=== PATIENT | female | born 2000 | race Hispanic/Latino ===

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

== ENCOUNTER 2021-01-03 13:57 | Outpatient (RCR) | payer OTHER, SELFPAY ==
[2020-12-30 12:29] VITALS: BP 134/89; PULSE 83
--- NOTE | ~2021-01-03 | US_ITS ---
EXAMINATION: US OB BPP wo non-stress DATE: 12/30/2020 12:59 SPECIMEN ACCESSIONER INDICATION: TECHNIQUE: Real-time transabdominal obstetric ultrasound. FINDINGS: No prior studies for comparison. There is a single living fetus in vertex presentation. The placenta is anterior without placenta pre via. cardiac activity and movement is noted with a heart rate of 135 beats per minute. A FI is normal measuring 10.7 cm. Biophysical profile: breathin of 2 movement: 2 of 2 tone: 2 of 2 Amniotic flud pocket: 2 of 2 Total score: 8 of 8 IMPRESSION: 1. Single living intrauterine in vertex presentation. 2: Total biophysical profile score of 8/8. Reviewed, dictated and finalized at location A. IMEN ACCESSIONER
== END 2021-03-03 09:29 | disposition home or self-care (01) ==
LOC: ANHOBOP 13:57
PROVIDERS: Visit Provider Obstetrics & Gynecology
DX: O36.5930 Maternal care for other known or suspected poor fetal growth, third trimester, not applicable or unspecified (principal); Z3A.35 35 weeks gestation of pregnancy
CPT/HCPCS: 59025; 76819

== ENCOUNTER 2021-01-03 20:06 | Inpatient (IN) | payer OTHER, SELFPAY ==
[2021-01-03] VITALS (12 sets, daily range): BP systolic 129–167; BP diastolic 81–103; PULSE 68–99; RESP 18–20; TEMP 36.9; BMI 31.8
[2021-01-03] MEDS: LACTATED RINGERS 1,000 ML 75 ML IV CONT ×2 (20:55→22:22)
--- NOTE | 2021-01-03 21:23 | OBADM ---
This patient, Cherise Welsh, admitted to the OB room Labor/Delivery/Recovery 105 for observation. Patient/family oriented to hospital policies and general routines including ID bracelet, bed and alarms, visiting hours, pain management, procedures, bathroom and other care routines, personal items, smoking policy, room service/diet, and visiting hours. Patient/Family are encouraged to report perceived risks to care and to ask questions if they do not understand what they are told or what they should do.
[2021-01-03 21:33] LABS: Basophils Percent Auto 0.3 % (0.2-1.2); Eosinophils Absolute Auto 0.1 K/mm3 (0-0.3); Eosinophils Percent Auto 0.9 % (0-4.4); Hematocrit 38.4 % (37.0-47.0); Immature Granulocyte Absolute 0.06 K/mm3 (0.00-0.031); Immature Granulocyte Percent A 0.4 % (0-0.5); Lymphocytes Absolute Auto 2.19 K/mm3 (0.9-3.2); Lymphocytes Percent Auto 15.2 % (18.3-44.2); Mean Corpuscular HGB Conc 33.9 g/dl (32-36); Mean Corpuscular Hemoglobin 29.2 pg (26-34); Mean Corpuscular Volume 86.3 fl (80-100); Mean Platelet Volume 14.2 fl (7.4-10.4); Monocytes Absolute Auto 0.8 K/mm3 (0.1-0.6); Monocytes Percent Auto 5.6 % (2.6-8.5); Neutrophils Absolute Auto 11.2 K/mm3 (1.3-6.7); Neutrophils Percent Auto 77.6 % (45.5-73.1); Platelet Count Result 117 k/mm3 (150-375); Red Blood Count 4.45 M/mm3 (4.2-5.4); Red Cell Distribution Width 13.6 % (11.5-14.5); White Blood Count 14.4 K/mm3 (4.5-10.0)
[2021-01-03 21:34] LABS: Add Urine Microscopic? YES; Appearance Urine Cloudy (Clear); Bilirubin Urine Negative (Negative); Blood Urine Negative (Negative); Color Urine Yellow (Yellow); Glucose Urine UA Negative (Negative); Ketones Urine Negative (Negative); Leukocyte Esterase Ur Negative LEU/UL (Negative); Mucus Urine Rare /lpf; Nitrate Urine Negative (Negative); Protein Urine 3+ mg/dL (Negative); Specific Grav Ur 1.025 (1.001-1.035); Squamous Epithelial Cell Urine Few /hpf (Few); Urobilinogen Urine Negative mg/dL (<2.0)
[2021-01-03 21:35] LABS: Alanine Aminotransferase 97 U/L (4-35); Albumin Level 3.9 g/dL (3.5-5.1); Alkaline Phosphatase 221 U/L (38-126); Anion Gap 9 mmol/L (8-16); Aspartate Amino Transferase 133 U/L (14-36); Bilirubin,Total 0.5 mg/dL (0.2-1.3); Blood Urea Nitrogen 12 mg/dL (7-17); Calcium 9.5 mg/dL (8.4-10.2); Carbon Dioxide 25 mmol/L (22-30); Chloride 103 mmol/L (98-107); Estimated CRCL calculation 133 ml/min; Estimated Glomerular Filt Rate > 60; Glucose 85 mg/dL (65-110); Potassium 3.5 mmol/L (3.4-5.0); Sodium 137 mmol/L (137-145); Uric Acid 4.5 mg/dL (2.5-7.5)
--- NOTE | 2021-01-03 21:42 | PM.IMHP ---
H&P: HPI History of Present Illness Date/Time: 01/03/21 21:42 Cherise is a 20yo @ 35.1wks who presented to L&D with complaints of abdominal and back pain. She was found to have elevated blood pressures and diagnosed with pre-eclampsia w/ severe features based on transaminitis. She was also found to be summer regularly but with reassuring heart tones. She denies VB or LOF. She endorses good movement. No RICKETTS, vision changes, SOB, or CP. Her is complicated by: - Late and limited care (total of 4 visits) - IUGR w/ EFW<3%ile; normal dopplers - Pre-eclampsia w/ severe features - GBS unknown Chief Complaint: abdominal pain Review of Systems Review of Systems: All systems reviewed & are unremarkable except as noted in HPI and below (HPI) [facility] Family History Family History Other No pertinent family history Social History Social History Substance use: never Spiritual care concerns: No Meds Home Medications and Allergies Home Medications Medication Instructions Recorded Confirmed Type ferrous sulfate [FeroSul] 325 mg PO DAILY 01/03/21 01/03/21 History [id number] 1 tablet PO DAILY 01/03/21 01/03/21 History [] Allergies Allergy/AdvReac Type Severity Reaction Status Date / Time No Known Allergies Allergy Verified 01/03/21 13:35 Vital Signs Vital Signs - 24 hr 01/03/21 20:55 01/03/21 21:28 01/03/21 21:30 Temperature 36.9 C Pulse Rate 69 68 Respiratory Rate 20 Blood Pressure 167/103 H 158/103 H Exam Const: General: cooperative, healthy appearing and uncomfortable Resp: Effort & Inspection: normal respiratory effort Cardio: Rate: regular rate GI: Inspection: normal to inspection GI Palp: Yes Soft to palpation : Other: FHT's: 150's/ mod conor/ + accels/ no decels - cat 1 TOCO: ctx' q2min Cervix: 1/thick/high Presentation: cephalic Membranes: intact H&P: Results Labs Labs: [facility] 01/03/21 21:09 Sodium 137 Potassium 3.5 Chloride 103 Carbon Dioxide 25 BUN 12 Creatinine 0.60 L Glucose 85 Calcium 9.5 Liver Function 01/03/21 Range/Units 21:09 Total Bilirubin 0.5 (0.2-1.3) mg/dL AST 133 H (14-36) U/L ALT 97 H (4-35) U/L Alkaline Phosphatase 221 H (38-126) U/L Albumin 3.9 (3.5-5.1) g/dL Urine 01/03/21 Range/Units 21:09 Urine Color Yellow (Yellow) Urine Appearance Cloudy H (Clear) Urine pH 7.0 (5.0-9.0) Ur Specific [place] 1.025 (1.001-1.035) Urine Protein 3+ H (Negative) mg/dL Urine Glucose (UA) Negative (Negative) mg/dL Assessment and Plan Assessment and plan (1) Pre-eclampsia: Qualifiers: Trimester: third trimester Qualified Code(s): O14.93 - Unspecified pre-eclampsia, third trimester Code(s): O14.90 - Unspecified pre-eclampsia, unspecified trimester Status: Acute (2) IUGR (intrauterine growth restriction): Status: Acute (3) : Qualifiers: Weeks of gestation: 35 weeks Qualified Code(s): Z3A.35 - 35 weeks gestation of Code(s): Z34.90 - Encounter for supervision of normal , unspecified, unspecified trimester Status: Acute Additional Plan - Admit to L&D for IOL due to pre-eclampsia with severe features and gestational age >34wks - Plan to proceed with pitocin augmentation due to frequent contractions - Magnesium sulfate for seizure prevention; 4g loading, 2g/hr thereafter - Labetalol protocol if BP >160/110 sustained for 10 minutes - Will repeat labs q12hrs - Betamethasone 12mg for lung maturity - GBS prophylaxis with ampicillin - Anesthesia consult PRN pain
[2021-01-03 21:47] LABS: Creatinine Urine 125.2 mg/dL
[2021-01-03 22:15] LABS: Total Protein Urine Random > 500 mg/dL
[2021-01-03] MEDS: AMPICILLIN 2 GM/NS 100 ML 2 GM/100 ML BAG IVPB (22:22)
[2021-01-03] MEDS: MAGNESIUM SULF 4 GM/WATER100ML 4 GM/100 ML BAG IVPB (22:23)
[2021-01-03] MEDS: BETAMETHASONE SOD PHOS/ACETATE 30 MG/5 ML VIAL 12 MG IM (22:23)
--- NOTE | 2021-01-03 22:34 | WPDHPUPDATE1 ---
History and Physical Update Update Date/Time: 01/03/21 22:34 History and Physical has been reviewed, including an updated exam of the patient. There are NO changes in the patient's condition. Risks, benefits, and alternatives have been discussed and questions answered. Patient agrees to proceed with procedure.
[2021-01-03] MEDS: MAGNESIUM SULF 20GM/WATER500ML 500 ML 50 MG IV CONT (22:54)
[2021-01-03] MEDS: DINOPROSTONE 10 MG VAG INSERT VAGINAL (23:00)
[2021-01-04] VITALS (92 sets, daily range): BP systolic 119–160; BP diastolic 55–124; PULSE 79–158; RESP 16–18; TEMP 36.3–37.2; O2SAT 93–100
[2021-01-04] MEDS: AMPICILLIN 1 GM/NS 50 ML 1 GM/50 ML BAG IVPB ×2 (02:07→05:55)
--- NOTE | 2021-01-04 03:20 | WPDANESEPPF ---
Anes - Initial Pre Proc Eval Procedure: labor epidural Date/Time: 01/04/21 03:20 Surgeon: Genie Garnica MD Pre Op Diagnosis: labor pain Pre Op Diagnosis: Back Pain/Abdominal Pain Patient Data Age: 20 Gender: F Height: 1.63 m Weight: 84 kg Last Vital Signs Temp 36.9 C 01/04/21 02:00 Pulse 94 01/04/21 03:00 Resp 18 01/03/21 22:54 BP 143/90 H 01/04/21 03:00 Allergies Allergy/AdvReac Type Severity Reaction Status Date / Time No Known Allergies Allergy Verified 01/03/21 13:35 Home Medications Medication Instructions Recorded Confirmed Type ferrous sulfate [FeroSul] 325 mg PO DAILY 01/03/21 01/03/21 History [id number] 1 tablet PO DAILY 01/03/21 01/03/21 History [] Laboratory Tests 01/03/21 01/03/21 01/03/21 21:09 21:09 21:09 WBC 14.4 K/mm3 H K/mm3 (4.5-10.0) RBC 4.45 M/mm3 M/mm3 (4.2-5.4) Hgb 13.0 g/dL g/dL (12.0-15.0) Hct 38.4 % % (37.0-47.0) MCV 86.3 fl fl (80-100) MCH 29.2 pg pg (26-34) MCHC 33.9 g/dl g/dl (32-36) RDW 13.6 % % (11.5-14.5) Plt Count 117 k/mm3 L k/mm3 (150-375) MPV 14.2 fl H fl (7.4-10.4) Immature Gran % (Auto) 0.4 % % (0-0.5) Neut % (Auto) 77.6 % H % (45.5-73.1) Lymph % (Auto) 15.2 % L % (18.3-44.2) [place] % (Auto) 5.6 % % (2.6-8.5) Eos % (Auto) 0.9 % % (0-4.4) Baso % (Auto) 0.3 % % (0.2-1.2) Lymph # (Auto) 2.19 K/mm3 K/mm3 (0.9-3.2) [place] # (Auto) 0.8 K/mm3 H K/mm3 (0.1-0.6) Eos # (Auto) 0.1 K/mm3 K/mm3 (0-0.3) Baso # (Auto) 0.0 K/mm3 K/mm3 (0.0-0.1) Abs Immat Gran (auto) 0.06 K/mm3 H K/mm3 (0.00-0.031) Absolute Neuts (auto) 11.2 K/mm3 H K/mm3 (1.3-6.7) Absolute Nucleated RBC 0.0 K/mm3 K/mm3 (0.0-0.012) Nucleated RBC % 0.0 % % (0.0-0.2) % Immature Plt Fraction 27.0 % H % (0.9-11.2) Sodium Potassium Chloride Carbon Dioxide Anion Gap BUN Creatinine Estim Creat Clear Calc Estimated GFR Glucose Uric Acid Calcium Total Bilirubin AST ALT Alkaline Phosphatase Total Protein Albumin Urine Color Yellow (Yellow) Urine Appearance Cloudy H (Clear) Urine pH 7.0 (5.0-9.0) Ur Specific [place] 1.025 (1.001-1.035) Urine Protein 3+ mg/dL H mg/dL (Negative) Urine Glucose (UA) Negative mg/dL mg/dL (Negative) Urine Ketones Negative mg/dL mg/dL (Negative) Ur Blood (Man) Negative (Negative) Urine Nitrate Negative (Negative) Urine Bilirubin Negative (Negative) Urine Urobilinogen Negative mg/dL mg/dL (<2.0) Leukocyte Esterase Rfl Negative EMMA/UL EMMA/UL (Negative) Urine RBC 3-5 /hpf H /hpf (0-2) Urine WBC 4-6 /hpf H /hpf Ur Squamous Epith Cells Few /hpf /hpf (Few) Urine Mucus Rare /lpf /lpf U Random Total Protein > 500 mg/dL mg/dL Urine Creatinine 125.2 mg/dL mg/dL Protein/Creat Ratio 2 > 3.99 mg/mg H mg/mg (0-0.20) RPR Blood Type Antibody Screen 01/03/21 01/03/21 01/03/21 21:09 22:07 22:07 WBC RBC Hgb Hct MCV MCH MCHC RDW Plt Count MPV Immature Gran % (Auto) Neut % (Auto) Lymph % (Auto) [place] % (Auto) Eos % (Auto) Baso % (Auto) Lymph # (Auto) [place] # (Auto) Eos # (A
--- NOTE | 2021-01-04 04:15 | LDADM ---
This patient, Cherise Welsh, was admitted to Labor/Delivery/Recovery 105 on 01/03/21 at 20:06. Plans for labor, pain management and were discussed with patient. Patient/family oriented to hospital policies and general routines including ID bracelet, bed and alarms, visiting hours, pain management, procedures, bathroom and other care routines, personal items, smoking policy, room service/diet and guest tray routines, security routines, and visiting hours. Patient/Family are encouraged to report perceived risks to care and to ask questions if they do not understand what they are told or what they should do. See OBIX for further documentation.
[2021-01-04] MEDS: OXYTOCIN 30 UNITS/NS 500 ML 30 UNITS/500 ML BAG 999 UNITS IV CONT (07:04)
--- NOTE | 2021-01-04 07:26 | P.PCNOB_ITS ---
OB - Delivery Note Procedure Delivery date: 01/04/21 events: Pre-Eclampsia and Labor Induction Induction method: per cervidil protocol Delivery monitor: external FHT and internal uterine Route of delivery: Laceration Description: Vaginal - 1st Degree (and clitoral martins) Quantitative Blood Loss (ml): 150 Anesthesia type: Epidural Disposition: floor [place] Baby Date of : 01/04/21 Time of : 07:02 Weeks of gestation at delivery: 35 (.2) gender: Male Weight (pounds): 4 Weight (ounces): 10 presentation: vertex position: Left Occiput Anterior Placenta delivery description: Expressed cord vessel description: 3 Vessels and Delayed Cord Clamping score one minute: 9 score five minutes: 9 Narrative: Cherise rapidly progressed to complete dilation with strong desire to push. She pushed for approximately 30 minutes and delivered the head over intact perineum. No nuchal cord was palpated. She easily delivered the infa nt's shoulders and body without complications. The infant had spontaneous cry and was immediately placed skin to skin. Delayed cord clamping was performed. The umbilical cord was then clamped and cut. with Pitocin running and gentle downward traction on the cord, the placenta delivered without complications. Bimanual massage was performed and good uterine tone with minimal bleeding was noted. A small fragment of membranes was removed. The patient was examined and a small vaginal laceration and clitoral martins laceration were noted. They were repaired in the normal fashion using 3-0 Vicryl. For fundal massage revealed a firm uterus with minimal bleeding. Sponge, lap, instrument, and needle counts were correct at the end of the procedure. Mom and baby were left bonding in the birthing suite in stable condition.
[2021-01-04] MEDS: OXYTOCIN 30 UNITS/NS 500 ML 30 UNITS/500 ML BAG 75 UNITS IV CONT (07:40)
[2021-01-04 08:27] LABS: Basophils Percent Auto 0.1 % (0.2-1.2); Hematocrit 33.1 % (37.0-47.0); Hemoglobin 11.6 g/dL (12.0-15.0); Immature Granulocyte Absolute 0.09 K/mm3 (0.00-0.031); Immature Granulocyte Percent A 0.6 % (0-0.5); Immature Platelet Fraction Pct 23.5 % (0.9-11.2); Lymphocytes Absolute Auto 0.77 K/mm3 (0.9-3.2); Lymphocytes Percent Auto 4.8 % (18.3-44.2); Mean Corpuscular Hemoglobin 29.3 pg (26-34); Mean Corpuscular Volume 83.6 fl (80-100); Mean Platelet Volume 13.8 fl (7.4-10.4); Monocytes Absolute Auto 0.3 K/mm3 (0.1-0.6); Monocytes Percent Auto 1.7 % (2.6-8.5); Neutrophils Absolute Auto 14.9 K/mm3 (1.3-6.7); Neutrophils Percent Auto 92.8 % (45.5-73.1); Platelet Count Result 88 k/mm3 (150-375); Red Blood Count 3.96 M/mm3 (4.2-5.4); Red Cell Distribution Width 13.5 % (11.5-14.5); White Blood Count 16.1 K/mm3 (4.5-10.0)
[2021-01-04 08:44] LABS: Alanine Aminotransferase 97 U/L (4-35); Albumin Level 3.3 g/dL (3.5-5.1); Alkaline Phosphatase 214 U/L (38-126); Anion Gap 10 mmol/L (8-16); Aspartate Amino Transferase 124 U/L (14-36); Bilirubin,Total 0.3 mg/dL (0.2-1.3); Blood Urea Nitrogen 10 mg/dL (7-17); Calcium 7.4 mg/dL (8.4-10.2); Carbon Dioxide 18 mmol/L (22-30); Chloride 100 mmol/L (98-107); Estimated CRCL calculation 133 ml/min; Estimated Glomerular Filt Rate > 60; Glucose 123 mg/dL (65-110); Lactate Dehydrogenase 709 U/L (313-618); Potassium 3.6 mmol/L (3.4-5.0); Sodium 128 mmol/L (137-145); Uric Acid 4.5 mg/dL (2.5-7.5)
[2021-01-04] MEDS: MAGNESIUM SULF 20GM/WATER500ML 500 ML 50 MG IV CONT ×2 (08:49→18:50)
[2021-01-04] MEDS: WITCH HAZEL 40 PADS 1 PAD TOPICAL (08:50)
[2021-01-04] MEDS: LANOLIN (LANSINOH) 7.5 GM CREAM 1 APPLIC TOPICAL (08:51)
--- NOTE | 2021-01-04 10:27 | PC.NURSE ---
Patient transferred to post room #279 per wheelchair from labor and delivery. Support person present. Oriented to unit, room, information board, rooming in, admission packet and security measures. Patient verbalizes understanding.
--- NOTE | 2021-01-04 14:10 | PC.NURSE ---
Consult with pt., discussed initiating pumping to stimulate milk supply with infant in Level II. Breast pump provided due to mother's wishes. Instructions given on breast pump care and usage, pumping schedule, nipple care, and collection and storage of breast milk. Encouraged [id number], breast massage and manual expression to stimulate supply. Assessed patient for correct flange size, placement and draw. Patient verbalizes and demonstrates understanding of instructions. Discussed colostrum vs milk supply and mother may not see more than a few drops the first few days, milk should transition in by day 3 and she may see more volume pumped per session. Discussed establishing in the may be more difficult due to their immaturity, infant may be less alert, have less stamina, and have greater difficulty with latch, suck, and swallow. ?s feeding may impact mother?s milk supply, pumping may need to be continued until milk supply is well established and infant is able to effectively breastfeed without supplementation.
[2021-01-05 03:45] VITALS: BP 126/79; PULSE 75; RESP 16; TEMP 36.8
[2021-01-05] MEDS: LACTATED RINGERS 1,000 ML 75 ML (03:45)
[2021-01-05 04:52] LABS: Basophils Percent Auto 0.2 % (0.2-1.2); Hematocrit 32.6 % (37.0-47.0); Hemoglobin 10.8 g/dL (12.0-15.0); Immature Granulocyte Absolute 0.11 K/mm3 (0.00-0.031); Immature Granulocyte Percent A 0.6 % (0-0.5); Immature Platelet Fraction Pct 24.2 % (0.9-11.2); Lymphocytes Absolute Auto 1.68 K/mm3 (0.9-3.2); Lymphocytes Percent Auto 8.7 % (18.3-44.2); Mean Corpuscular HGB Conc 33.1 g/dl (32-36); Mean Corpuscular Volume 87.4 fl (80-100); Mean Platelet Volume 13.1 fl (7.4-10.4); Monocytes Absolute Auto 0.8 K/mm3 (0.1-0.6); Monocytes Percent Auto 4.3 % (2.6-8.5); Neutrophils Absolute Auto 16.6 K/mm3 (1.3-6.7); Neutrophils Percent Auto 86.2 % (45.5-73.1); Platelet Count Result 118 k/mm3 (150-375); Red Blood Count 3.73 M/mm3 (4.2-5.4); Red Cell Distribution Width 14.3 % (11.5-14.5); White Blood Count 19.2 K/mm3 (4.5-10.0)
[2021-01-05 05:01] LABS: Alanine Aminotransferase 76 U/L (4-35); Albumin Level 3.1 g/dL (3.5-5.1); Alkaline Phosphatase 195 U/L (38-126); Anion Gap 7 mmol/L (8-16); Aspartate Amino Transferase 58 U/L (14-36); Bilirubin,Total 0.2 mg/dL (0.2-1.3); Blood Urea Nitrogen 8 mg/dL (7-17); Calcium 6.7 mg/dL (8.4-10.2); Carbon Dioxide 24 mmol/L (22-30); Chloride 102 mmol/L (98-107); Estimated CRCL calculation 133 ml/min; Estimated Glomerular Filt Rate > 60; Glucose 114 mg/dL (65-110); Potassium 3.9 mmol/L (3.4-5.0); Sodium 133 mmol/L (137-145)
[2021-01-05 07:55] VITALS: BP 135/92; PULSE 67; RESP 16; TEMP 36.6; O2SAT 99
--- NOTE | 2021-01-05 09:52 | WPDANLDPN2 ---
Anes-Prog Note L&D Date/Time: 01/05/21 09:52 Comfortable throughout: labor and delivery Neuraxial method: epidural Epidural/Spinal procedure site: clean & non-tender Neuro status: Neuro function grossly intact. Cardiovascular status: normal Respiratory status: normal Airway patency: baseline Mental status: baseline Post-Op hydration status: normal Vital Signs: Last Vital Signs Temp 36.6 C 01/05/21 07:55 Pulse 67 01/05/21 07:55 Resp 16 01/05/21 07:55 BP 135/92 H 01/05/21 07:55 Pulse Ox 99 01/05/21 07:55 Pain score (VAS): 0 I/O: Intake & Output 01/04/21 01/05/21 01/05/21 23:59 07:59 15:59 Intake Total 500 1165 500 Output Total 800 1000 1000 Balance -300 165 -500 Post-procedural complaints: none Patient feedback: Patient satisfied with anesthetic care.
[2021-01-05] MEDS: MULTIVIT/MIN/PREN/FOL AC/IRON TABLET 1 TAB PO (11:20)
[2021-01-05] MEDS: IBUPROFEN 600 MG TABLET PO (11:20)
[2021-01-05 12:11] VITALS: BP 116/75; PULSE 85; RESP 16; TEMP 37.1; O2SAT 100
--- NOTE | 2021-01-05 13:05 | PM.OBPNVD ---
OB - PN: Subj Subjective Date/time seen: 01/05/21 13:05 PPD#1 Cherise reports doing well today. The magnesium has been discontinued since this morning and she feels better. Her BPs and have in the normal to mild range. She denies any CP, RICKETTS, vision changes, SOB. She has tolerated regular diet, voided, passed gas, and ambulated. No symptoms of anemia. She is pumping. She would like her son circumcised. She denies fever, chills, N/V, dizziness or palpitations. OB - PN: Obj Data Labs CBC & Chem 7: 01/05/21 03:47 01/05/21 03:47 Labs: Laboratory Results - last 24 hr 01/05/21 01/05/21 03:47 03:47 WBC 19.2 H RBC 3.73 L Hgb 10.8 L Hct 32.6 L MCV 87.4 MCH 29.0 MCHC 33.1 RDW 14.3 Plt Count 118 L MPV 13.1 H Immature Gran % (Auto) 0.6 H Neut % (Auto) 86.2 H Lymph % (Auto) 8.7 L [place] % (Auto) 4.3 Eos % (Auto) 0.0 Baso % (Auto) 0.2 Lymph # (Auto) 1.68 [place] # (Auto) 0.8 H Eos # (Auto) 0.0 Baso # (Auto) 0.0 Abs Immat Gran (auto) 0.11 H Absolute Neuts (auto) 16.6 H Absolute Nucleated RBC 0.0 Nucleated RBC % 0.0 % Immature Plt Fraction 24.2 H Sodium 133 L Potassium 3.9 Chloride 102 Carbon Dioxide 24 Anion Gap 7 L BUN 8 Creatinine 0.60 L Estim Creat Clear Calc 133 Estimated GFR > 60 Glucose 114 H Calcium 6.7 L Total Bilirubin 0.2 AST 58 H ALT 76 H Alkaline Phosphatase 195 H Total Protein 6.0 L Albumin 3.1 L OB - PN A/P Assessment and Plan (1) Pre-eclampsia: Qualifiers: Trimester: third trimester Qualified Code(s): O14.93 - Unspecified pre-eclampsia, third trimester Code(s): O14.90 - Unspecified pre-eclampsia, unspecified trimester Status: Acute (2) Normal vaginal delivery of first : Code(s): O80 - Encounter for full-term uncomplicated delivery Status: Acute Plan day: 1 Plan: routine care Comments: - will monitor BP's 24 hours off magnesium - possible d/c home tomorrow - circumcision to be performed today. Time Spent With Patient Time: Total time spent is greater than 50% in coordination of care (as documented) at patient's floor/unit and/or counseling patient: Review of Systems Review of Systems: All systems reviewed & are unremarkable except as noted in HPI and below (HPI) Exam Const: General: cooperative, healthy appearing, comfortable and no acute distress Resp: Effort & Inspection: normal respiratory effort Auscultation: clear to auscultation bilaterally Cardio: Rate: regular rate GI: Inspection: normal to inspection and non-distended GI Palp: No abdominal tenderness and Yes Soft to palpation Auscultation: normal bowel sounds : Other: fundus firm Skin: General skin exam: normal color Neuro: General: oriented to person Extrem: General: normal to inspection Psych: Appearance: grossly normal Affect: normal affect Attitude: cooperative
--- NOTE | 2021-01-05 14:45 | PC.NURSE ---
consult with pt., mother states she has not pumped regularly, she has been tired from the Magnesium, which has now been discontinued. Mother states she has pumped at noon today and plans to begin every three hours. Mother denied discomfort or difficulties with pumping. Discussed colostrum vs milk supply and mother may not see more than a few drops the first few days, milk should transition in by day 3 and she may see more volume pumped per session. Mother voiced understanding of information shared.
[2021-01-05 16:15] VITALS: BP 132/81; PULSE 80
[2021-01-05 18:43] VITALS: BP 131/89; PULSE 74; RESP 16; TEMP 36.7
[2021-01-06 02:00] VITALS: BP 121/78; PULSE 74; RESP 16; TEMP 36.8
--- NOTE | 2021-01-06 07:15 | PM.OBPNVD ---
OB - PN: Subj Subjective Date/time seen: 01/06/21 07:15 PPD#2 Cherise reports doing well today. Her BPs have been in the normal to mild range. She denies any CP, RICKETTS, vision changes, SOB. She has tolerated regular diet, voided, passed gas, and ambulated. 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 No symptoms of anemia. She is pumping and bottle feeding. She denies fever, chills, N/V, dizziness or palpitations. OB - PN: Obj Data Labs CBC & Chem 7: 01/05/21 03:47 01/05/21 03:47 OB - PN A/P Assessment and Plan (1) Normal vaginal delivery of first : Code(s): O80 - Encounter for full-term uncomplicated delivery Status: Acute (2) Pre-eclampsia: Qualifiers: Trimester: third trimester Qualified Code(s): O14.93 - Unspecified pre-eclampsia, third trimester Code(s): O14.90 - Unspecified pre-eclampsia, unspecified trimester Status: Acute Plan day: 2 Plan: discharge home (or no care bed if González isn't discharged) Comments: - F/u in clinic in 2 weeks for BP check - pelvic rest/take meds as prescribed - ER return precautions: n/v/abd pain, fever, HTN, bleeding Time Spent With Patient Time: Total time spent is greater than 50% in coordination of care (as documented) at patient's floor/unit and/or counseling patient: Review of Systems Review of Systems: All systems reviewed & are unremarkable except as noted in HPI and below (HPI) Exam Const: General: cooperative, healthy appearing, comfortable and no acute distress Resp: Effort & Inspection: normal respiratory effort Auscultation: clear to auscultation bilaterally Cardio: Rate: regular rate GI: Inspection: non-distended GI Palp: No abdominal tenderness and Yes Soft to palpation Auscultation: normal bowel sounds : Other: fundus firm Skin: General skin exam: normal color Neuro: General: patient oriented x3 Extrem: General: normal to inspection Psych: Appearance: grossly normal Affect: normal affect Attitude: cooperative
[2021-01-06 07:45] VITALS: BP 123/77; PULSE 67; RESP 18; TEMP 37.4; O2SAT 98
[2021-01-06] MEDS: TETANUS,DIPHTHERIA,AC PERTUSSIS ADULT (0.5 ML) BOOSTRIX IM (09:41)
[2021-01-06] MEDS: DOCUSATE SODIUM 100 MG CAPSULE PO (09:42)
[2021-01-06] MEDS: MULTIVIT/MIN/PREN/FOL AC/IRON TABLET 1 TAB PO (09:42)
[2021-01-06] MEDS: IBUPROFEN 600 MG TABLET PO ×2 (09:42→15:50)
[2021-01-06 12:03] VITALS: BP 110/72; PULSE 63; RESP 18; TEMP 36.6; O2SAT 97
--- NOTE | 2021-01-06 12:19 | PC.NURSE ---
Consult with pt., mother continues to pump as required. Mother pumped 15mls last session. Reviewed collection and storage of colostrum/milk.
--- NOTE | 2021-01-06 17:08 | PC.NURSE ---
1700-Patient discharged to No Care Bed (NCB).
--- NOTE | 2021-01-06 17:27 | PC.NURSE ---
2766-Patient viewed the discharge video Mother & Baby Care, The First Two Weeks . Patient was given the opportunity and encouraged to ask questions. Patient verbalized understanding of information shared and has been given the mother/baby guide for home reference.
[2021-01-07 07:19] LABS: Rapid Plasma Reagin Non-Reactive (NonReactive)
--- NOTE | 2021-01-09 13:53 | PM.OBDSVD ---
DS: Admitting Diagnosis Discharge Date 01/06/21 Admitting Diagnosis contractions pre-eclampsia with severe features DS: Discharge Diagnosis Discharge Diagnosis (1) Pre-eclampsia: Qualifiers: Trimester: third trimester Qualified Code(s): O14.93 - Unspecified pre-eclampsia, third trimester Code(s): O14.90 - Unspecified pre-eclampsia, unspecified trimester Status: Acute (2) Normal vaginal delivery of first : Code(s): O80 - Encounter for full-term uncomplicated delivery Status: Acute OB - DS: Summary OB Procedures : PIH Mgmt and Ultrasound OB Procedures Intrapartum: Spontaneous Vag Delivery OB Procedures: : None Peripartum Data Delivery Method: Natural Vaginal Laceration Description: Vaginal - 1st Degree complications: none [place] 1: Gender: Male Disposition of : home Status at Discharge Functional status at discharge: independent ambulation Overall status at discharge: patient is back to baseline Time Spent with Patient Time attestation: Total time spent providing and/or coordinating discharge services: Time spent: Less than 30 minutes Exam Const: General: cooperative, healthy appearing, comfortable and no acute distress Resp: Effort & Inspection: normal respiratory effort Auscultation: clear to auscultation bilaterally Cardio: Rate: regular rate GI: Inspection: normal to inspection and non-distended GI Palp: No abdominal tenderness and Yes Soft to palpation Auscultation: normal bowel sounds : Other: fundus firm Skin: General skin exam: normal color Neuro: General: patient oriented x3 Psych: Appearance: grossly normal Affect: normal affect Attitude: cooperative DS: Data Data Completed and Pending Pending studies at discharge: Pending at discharge 01/04/21 07:06 Surgical [PTH] Routine Discharge Plan Discharge Attending physician on discharge: Genie Garnica Consulting providers: J Carlos Devlin Discharging Clinician: Genie Garnica Anticipated Discharge Date/Time: 01/06/21 16:00 Patient Disposition: Home, Self-Care Activity: pelvic rest Diet: regular Discharge Instructions: Education: Mom and Baby Guide Given to: Mother Follow-Up: Call your delivering provider's office for an appointment to be seen in: F/U 2 weeks; [facility] discharges Mom and baby should come to the [facility] for the follow-up appointment. Appointment Date/Time: at What to expect at your follow-up visit: Call [phone] if you are unable to keep your appointment time. BREAST CARE: * Wear a snug supportive bra * For engorgement discomfort: Breast Feeding: * Apply warm moist washcloths * Express milk as needed to relieve engorgement * Wear loose clothing Bottle Feeding: * May apply ice packs * For sore nipples: * Identify correct latch-on * Apply warm moist washcloths before and after nursing * Air dry nipples after nursing * May apply Lansinoh cream to nipples EPISIOTOMY/PERINEAL CARE: * Until bleeding stops, use your pat bottle after urinating * Change your pad frequently throughout the day * You may take sitz baths several times a day (fill your bathtub with warm water and soak for 20 minutes.) Do NOT bathe in the water * No tub baths until seen by your physician - You may shower ACTIVITY: * Rest as much as possible. * Do not exercise or lift anything heavier than your baby (such as laundry or other children.) * Avoid stairs or driving as much as possible. * Do not put anything into the vagina. No douching, tampons, or sexual activity until seen by physician. NOTIFY PHYSICIAN IF YOU HAVE ANY QUESTIONS OR IF ANY OF THE FOLLOWING SYMPTOMS OCCUR: * If your perineum becomes red, swollen, or more laura
== END 2021-01-06 17:00 | disposition home or self-care (01) | DRG 560 ==
LOC: ANHLDR 21:50 → ANHOB2 01-04 10:42
PROVIDERS: Admitting Provider Obstetrics & Gynecology; Visit Provider Obstetrics & Gynecology
DX: O14.14 Severe pre-eclampsia complicating childbirth (principal); O36.5930 Maternal care for other known or suspected poor fetal growth, third trimester, not applicable or unspecified; O70.0 First degree perineal laceration during delivery; Z3A.35 35 weeks gestation of pregnancy; Z37.0 Single live birth; Z23 Encounter for immunization
CPT/HCPCS: 36415; 80053; 81001; 82570; 83615; 84112; 84156; 84550; 85025; 85055; 86592; 86850; 86900; 86901; 88307; 90471; 90653; 90715; A9270; G0008; J0131; J0290; J0702; J2590; J2795; J3475; J7120

== ENCOUNTER 2021-10-17 11:54 | Outpatient (CLI) | payer OTHER, SELFPAY ==
--- NOTE | ~2021-10-17 | US_ITS ---
EXAMINATION: US OB follow up DATE: 10/17/2021 11:59 INDICATION: with inconclusive viability. No care. TECHNIQUE: Real-time ultrasound of the pelvis was performed. COMPARISON: None. FINDINGS: There is a single living fetus in breech presentation. The placenta is posterior, 12.0 cm from the c ervix. heart rate is 144 beats per minute (bpm). The cervical length is 4.1 cm. The amniotic fl uid index is 16.8 cm, which is normal. The following biometric data were obtained: Biparietal diameter (BPD): 6.2 cm; head circumference (HC): 23.8 cm; abdominal circumference (AC): 23 .1 cm; femur length (FL): 5.1 cm. These measurements are discordant with HC/AC < 5th percentile. Estimated weight is 1021 g +/- 153 g. As single measurements, these parameters are each equal to the following estimated gestational ages: BPD: 26 weeks 2 days. HC: 25 weeks 6 days. AC: 27 weeks 3 days. FL: 27 weeks 1 days. estimated gestational age based solely on measurements from this exam is 26 weeks 3 days +/- 1 weeks 6 days. The heart is normal. The diaphragm, stomach, and bladder are normal. IMPRESSION: 1. Single living fetus in breech presentation. 2. Estimated weight is 1021 g +/- 153 g with estimated date of delivery of 01/20/2022. 3. Discordant biometrics with low HC/AC. Reviewed, dictated and finalized at location A.
[2021-10-17 12:14] LABS: Basophils Percent Auto 0.2 % (0.2-1.2); Eosinophils Absolute Auto 0.1 K/mm3 (0-0.3); Hematocrit 32.2 % (37.0-47.0); Hemoglobin 10.3 g/dL (12.0-15.0); Immature Granulocyte Absolute 0.05 K/mm3 (0.00-0.031); Immature Granulocyte Percent A 0.4 % (0-0.5); Lymphocytes Absolute Auto 1.89 K/mm3 (0.9-3.2); Lymphocytes Percent Auto 15.1 % (18.3-44.2); Mean Corpuscular Hemoglobin 27.1 pg (26-34); Mean Corpuscular Volume 84.7 fl (80-100); Mean Platelet Volume 12.8 fl (7.4-10.4); Monocytes Absolute Auto 0.7 K/mm3 (0.1-0.6); Monocytes Percent Auto 5.3 % (2.6-8.5); Neutrophils Absolute Auto 9.8 K/mm3 (1.3-6.7); Platelet Count Result 222 k/mm3 (150-375); White Blood Count 12.5 K/mm3 (4.5-10.0)
[2021-10-17 12:21] LABS: Appearance Urine Slightly Cloudy (Clear); Bilirubin Urine Negative (Negative); Blood Urine Negative (Negative); Color Urine Yellow (Yellow); Glucose Urine UA Negative (Negative); Ketones Urine Negative (Negative); Leukocyte Esterase Ur Negative LEU/UL (NEGATIVE); Nitrate Urine Negative (Negative); Protein Urine Trace mg/dL (Negative); Urobilinogen Urine 0.2 mg/dL (<2.0); pH Urine 8.5 (5.0-9.0)
[2021-10-17 12:35] LABS: Bacteria Urine Trace /hpf; Mucus Urine Rare /lpf; RBC Urine 0-2 /hpf (0-2); Squamous Epithelial Cell Urine Few /hpf (Few); WBC Urine 0-3 /hpf (0-3)
[2021-10-17 12:37] LABS: Add Urine Microscopic? YES
[2021-10-17 13:04] LABS: Vitamin D 25 Hydroxy 19.4 ng/mL
[2021-10-17 13:06] LABS: HIV 1/2 Ab P24 Ag Result Negative (Negative)
[2021-10-17 13:35] LABS: Hepatitis C Virus Antibody Negative (Negative)
[2021-10-17 13:44] LABS: Hepatitis B Surface Antigen Negative (Negative); Rubella IgG Antibody 31.8 IU/ML
[2021-10-18 07:10] LABS: Rapid Plasma Reagin Non-Reactive (NonReactive)
== END 2021-10-17 11:55 | disposition home or self-care (01) ==
PROVIDERS: PCP Obstetrics & Gynecology; Visit Provider Obstetrics & Gynecology
DX: Z34.90 Encounter for supervision of normal pregnancy, unspecified, unspecified trimester (principal)
CPT/HCPCS: 36415; 76816; 81001; 82306; 84443; 85025; 86592; 86703; 86762; 86787; 86803; 86850; 86900; 86901; 87086; 87088; 87340; G0432

== ENCOUNTER 2021-11-15 12:52 | Outpatient (CLI) | payer OTHER, SELFPAY ==
[2021-11-15 14:56] LABS: Basophils Percent Auto 0.2 % (0.2-1.2); Eosinophils Absolute Auto 0.2 K/mm3 (0-0.3); Hematocrit 33.9 % (37.0-47.0); Hemoglobin 10.6 g/dL (12.0-15.0); Immature Granulocyte Absolute 0.05 K/mm3 (0.00-0.031); Immature Granulocyte Percent A 0.5 % (0-0.5); Lymphocytes Absolute Auto 1.53 K/mm3 (0.9-3.2); Lymphocytes Percent Auto 15.1 % (18.3-44.2); Mean Corpuscular HGB Conc 31.3 g/dl (32-36); Mean Corpuscular Hemoglobin 27.1 pg (26-34); Mean Corpuscular Volume 86.7 fl (80-100); Monocytes Absolute Auto 0.7 K/mm3 (0.1-0.6); Monocytes Percent Auto 6.5 % (2.6-8.5); Neutrophils Absolute Auto 7.7 K/mm3 (1.3-6.7); Neutrophils Percent Auto 75.7 % (45.5-73.1); Platelet Count Result 244 k/mm3 (150-375); Red Blood Count 3.91 M/mm3 (4.2-5.4); Red Cell Distribution Width 14.7 % (11.5-14.5); White Blood Count 10.1 K/mm3 (4.5-10.0)
[2021-11-15 15:13] LABS: Glucose 1 Hour PP 50gm Dose 90 mg/dL
== END 2021-11-15 12:53 | disposition home or self-care (01) ==
LOC: ANHLAB 12:55
PROVIDERS: PCP Obstetrics & Gynecology; Visit Provider Obstetrics & Gynecology
DX: Z34.90 Encounter for supervision of normal pregnancy, unspecified, unspecified trimester (principal); Z3A.00 Weeks of gestation of pregnancy not specified
CPT/HCPCS: 36415; 82947; 85025

== ENCOUNTER 2022-01-10 14:40 | Outpatient (RCR) | payer OTHER, SELFPAY ==
[2021-11-30 12:54] VITALS: BP 110/62; PULSE 75
--- NOTE | ~2022-01-10 | US_ITS ---
US OB limited w BPP DATE: 01/10/2022 15:48 INDICATION: Decreased movement TECHNIQUE: Real-time and color flow imaging and Doppler analysis COMPARISON: 10/17/2021 obstetrical ultrasound 12/30/2020 obstetrical ultrasound with biophysical profile FINDINGS: Live nichols intrauterine gestation, fetus in longitudinal lie, vertex presentation. Feta l heart rate of 136 bpm. Posterior placenta. Amniotic fluid index measures 10.6 cm. 5th percentile FREDDIE is 7.2 cm; 95th percentile FREDDIE is 22.6 cm. BIOPHYSICAL PROFILE reported by hardware technician: breathin out of 2 movement: 2 out of 2 tone: 2 out of 2 Amniotic fluid pocket: 2 out of 2 Total score: 8 out of 8 IMPRESSION: Normal biophysical profile score of 8 out of 8 Amniotic fluid index measures 10.6 cm, within normal range Reviewed, dictated and finalized at [facility]. Reviewed, dictated and finalized at location A. [place] ASSISTANT MANAGER
[2022-01-10 16:00] VITALS: BP 127/87; PULSE 85
== END 2022-01-21 15:34 | disposition home or self-care (01) ==
LOC: ANHOBOP 14:40
PROVIDERS: PCP Obstetrics & Gynecology; Visit Provider Obstetrics & Gynecology
DX: O36.8130 Decreased fetal movements, third trimester, not applicable or unspecified (principal); Z3A.34 34 weeks gestation of pregnancy
CPT/HCPCS: 59025; 76815; 76819

== ENCOUNTER 2022-01-12 19:17 | Inpatient (IN) | payer OTHER, SELFPAY ==
[2022-01-12] VITALS (15 sets, daily range): BP systolic 71–133; BP diastolic 26–86; PULSE 83–121; TEMP 36.9; BMI 34.0
--- NOTE | 2022-01-12 19:51 | LDADM ---
This patient, Cherise Welsh, was admitted to Labor/Delivery/Recovery 104 on 01/12/22 at 19:17. Plans for labor, pain management and were discussed with patient. Patient/family oriented to hospital policies and general routines including ID bracelet, bed and alarms, visiting hours, pain management, procedures, bathroom and other care routines, personal items, smoking policy, room service/diet and guest tray routines, security routines, and visiting hours. Patient/Family are encouraged to report perceived risks to care and to ask questions if they do not understand what they are told or what they should do. See OBIX for further documentation.
[2022-01-12 20:09] LABS: Basophils Percent Auto 0.3 % (0.2-1.2); Eosinophils Absolute Auto 0.1 K/mm3 (0-0.3); Eosinophils Percent Auto 0.7 % (0-4.4); Hematocrit 36.5 % (37.0-47.0); Hemoglobin 12.2 g/dL (12.0-15.0); Immature Granulocyte Absolute 0.08 K/mm3 (0.00-0.031); Immature Granulocyte Percent A 0.5 % (0-0.5); Lymphocytes Absolute Auto 2.18 K/mm3 (0.9-3.2); Lymphocytes Percent Auto 14.6 % (18.3-44.2); Mean Corpuscular HGB Conc 33.4 g/dl (32-36); Mean Corpuscular Hemoglobin 28.2 pg (26-34); Mean Corpuscular Volume 84.5 fl (80-100); Mean Platelet Volume 12.4 fl (7.4-10.4); Monocytes Absolute Auto 0.9 K/mm3 (0.1-0.6); Monocytes Percent Auto 5.8 % (2.6-8.5); Neutrophils Absolute Auto 11.6 K/mm3 (1.3-6.7); Neutrophils Percent Auto 78.1 % (45.5-73.1); Platelet Count Result 221 k/mm3 (150-375); Red Blood Count 4.32 M/mm3 (4.2-5.4); Red Cell Distribution Width 14.6 % (11.5-14.5); White Blood Count 14.9 K/mm3 (4.5-10.0)
[2022-01-12] MEDS: LACTATED RINGERS 1,000 ML 999 ML IV CONT (20:10)
--- NOTE | 2022-01-12 20:30 | PM.IMHP ---
H&P: HPI History of Present Illness Date/Time: 01/12/22 20:30 Chief Complaint: Contractions Narrative: Patient is a 21 y/o at 40 1/7 by LMP 04/16/21 consistent with an EDC 01/11/22 consistent with a 26 week ultrasound. She presented with complaints of contractions increasing since this afternoon. Contractions started getting more frequent approximately 7 o clock. On arrival to and D she was 8 cm, ctx every 3 minutes. PNC significant for late presentation to care at 26 weeks and history of pre-eclampsia with prior . She was taking baby aspirin and stopped at 37 weeks. She has gotten ultrasounds which have shown adequate growth. Labs reviewed. GBS neg. She also has a history of chlmydia treated during this , YAN neg and third trimester GC/CHL neg. Review of Systems Review of Systems: All systems reviewed & are unremarkable except as noted in HPI and below Constitutional: Constitutional: Reports no additional constitutional complaints and Denies headache(s) Eyes: Eyes: Denies spots in vision ENT: Reports system reviewed and no additional complaints, except as documented and Denies headache(s) Cardiovascular: Cardiovascular: Denies chest pain and Denies dyspnea Respiratory: Respiratory: Denies dyspnea Gastrointestinal: Gastrointestinal: Reports no additional gastrointestinal complaints Genitourinary: Genitourinary: Reports amenorrhea Musculoskeletal: Musculoskeletal: Reports no additional musculoskeletal complaints Integumentary/Breasts: Skin/Breast: Denies breast mass and Denies rash Neurologic: Denies headache(s) Psychiatric: Psychiatric: Reports no additional psychiatric complaints PMFSH Past Medical History Medical History Pre-eclampsia Family History Family History Other No pertinent family history Social History Social History Smoking status: Never smoker Second hand tobacco smoke exposure: No Substance use: never Lack of Transportation: No Lack of Food: Never True Current Housing: I Do Not Have Housing Concerned About Future Housing: No Difficulty Paying Gas/Electric Bills: No Difficulty Paying for Meds: No Currently Unemployed: YES Education: High School Diploma/GED Difficulty w/ Childcare or Family Care: No Spiritual care concerns: No Meds Home Medications and Allergies Home Medications Medication Instructions Recorded Confirmed Type ferrous sulfate 325 mg (65 mg 325 mg PO DAILY #90 tabs 10/25/21 01/12/22 Rx iron) tablet prenat.vits,micah,[id number] 1 tablet PO DAILY 11/02/21 01/12/22 History aspirin 81 mg tablet,delayed 81 mg PO DAILY 11/14/21 01/12/22 History release cholecalciferol (vitamin D3) 50 50 mcg PO DAILY 12/13/21 01/12/22 History mcg (2,000 unit) tablet (Vitamin D3) Allergies Allergy/AdvReac Type Severity Reaction Status Date / Time No Known Allergies Allergy Verified 01/10/22 14:08 Vital Signs Vital Signs - 24 hr 01/12/22 19:45 01/12/22 20:01 01/12/22 20:13 Temperature 98.5 F Pulse Rate 104 H 121 H Blood Pressure 133/86 124/86 Oxygen Delivery 01/12/22 20:15 01/12/22 19:51 Temperature Pulse Rate 116 H Blood Pressure 125/84 Oxygen Delivery Room Air Exam Const: General: no acute distress Eyes: General: appearance normal, both eyes and all related structures Resp: Effort & Inspection: normal respiratory effort Cardio: Rate: regular rate GI: Other: Gravid no fundal tenderness no right upper quadrant pain : External Female Exam: normal external appearance Other: cervix 8/90/-1. Skin: General skin exam: no rashes or lesions noted Neuro: Cognition (Neuro): normal cognition Extrem: General: normal to inspection Psych: Mental Status: mental status grossly normal H&P: Results La
--- NOTE | 2022-01-12 20:45 | PM.OBPNLAB ---
Pain Control Date/time seen: 01/12/22 20:45 Comments: FHT 155, cat 1, AROM thick mec at 2020. Continue expectant management.
[2022-01-12] MEDS: OXYTOCIN 30 UNITS/NS 500 ML 30 UNITS/500 ML BAG 999 UNITS IV CONT (21:24)
[2022-01-12] MEDS: LIDOCAINE HCL 1% PF 30 ML VIAL (21:34)
--- NOTE | 2022-01-12 21:38 | PM.OBPRVD ---
OB - Delivery Note Procedure Delivery date: 01/12/22 Procedure: Spontaneous vaginal delivery Delivery augmentation: Rupture of Membranes (thick meconium) Delivery monitor: External FHT Route of delivery: Laceration Description: Perineal - 1st Degree Delivery repair: vicryl (3.0 vicryl) Specimen: No Quantitative Blood Loss (ml): 300 Anesthesia type: Local Disposition: Floor Complications: None Narrative: Patient admitted in active labor. She AROM thick meconium. She progressed to ant rim at which time she was pushing. The anterior rim was reduced and she was complete. She pushed several contractions and delivered a female infant. Infant was vigorously crying upon delivery. Nose mouth suctioned with bulb at perineum. She was placed on maternal abdomen. Cord doubly clamped and cut. Global Safety Officer present for delivery. Placenta delivered spontaneously and intact with trailing membranes. Lower uterine segment cleared of small clots. The first degree perineal laceration repaired with simple suture of 3.0 vicryl after 1% lidocaine injected. She tolerated procedure well. Uterine fundus firm. [place] Baby Date of : 01/12/22 Time of : 21:19 Weeks of gestation at delivery: 40 Infant gender: Female Weight (pounds): 6 Weight (ounces): 5 presentation: vertex position: Right Occiput Anterior Placenta delivery description: Spontaneous Cord Vessel Description: Clamped/Cut score one minute: 8 score five minutes: 8 AMG Delivery Billing Delivery Delivery: Delivery Charge
[2022-01-12] MEDS: ACETAMINOPHEN 500 MG TABLET 1000 MG PO (22:09)
[2022-01-12] MEDS: LANOLIN (LANSINOH) 7.5 GM CREAM 1 APPLIC TOPICAL (22:43)
[2022-01-12] MEDS: WITCH HAZEL 40 PADS 1 PAD TOPICAL (22:43)
[2022-01-12] MEDS: BENZOCAINE 20% AER SPR (*SP) 56 GM CAN 1 SPRAY TOPICAL (22:43)
--- NOTE | 2022-01-12 23:50 | PC.NURSE ---
Patient transferred to post room # [id number] via (wheelchair ). Support person present. Oriented to unit, room, information board, rooming in, admission packet and security measures. Patient verbalizes understanding.
[2022-01-13 01:10] VITALS: BP 110/57; PULSE 79; RESP 18; TEMP 36.9; O2SAT 97
[2022-01-13] MEDS: IBUPROFEN 600 MG TABLET PO ×3 (01:39→18:00)
[2022-01-13 04:28] VITALS: BP 109/65; PULSE 88; RESP 16; TEMP 36.8; O2SAT 98
[2022-01-13 05:23] LABS: Hemoglobin 9.9 g/dL (12.0-15.0)
[2022-01-13 07:35] VITALS: BP 115/56; PULSE 98; RESP 18; TEMP 36.2; O2SAT 100
[2022-01-13] MEDS: POLYSACCHARIDE IRON COMPLEX 150 MG CAPSULE PO ×2 (08:21→18:01)
[2022-01-13] MEDS: MULTIVIT/MIN/PREN/FOL AC/IRON TABLET 1 TAB PO (08:21)
[2022-01-13] MEDS: DOCUSATE SODIUM 100 MG CAPSULE PO ×2 (08:22→18:00)
[2022-01-13 09:04] LABS: Rapid Plasma Reagin Non-Reactive (NonReactive)
--- NOTE | 2022-01-13 10:31 | P.PNOB_ITS ---
OB - PN: Subj Subjective Date/time seen: 01/13/22 10:31 Patient comments: pain well controlled, tolerating diet and other (Decreasing lochia.) baby status: doing well and nursing well [place] feeding status: exclusively breast feeding OB - PN: Obj Data Labs CBC & Chem 7: 01/13/22 04:49 Labs: Laboratory Results - last 24 hr 01/12/22 01/12/22 01/12/22 19:56 20:04 20:04 WBC 14.9 H RBC 4.32 Hgb 12.2 Hct 36.5 L MCV 84.5 MCH 28.2 MCHC 33.4 RDW 14.6 H Plt Count 221 MPV 12.4 H Immature Gran % (Auto) 0.5 Neut % (Auto) 78.1 H Lymph % (Auto) 14.6 L [place] % (Auto) 5.8 Eos % (Auto) 0.7 Baso % (Auto) 0.3 Lymph # (Auto) 2.18 [place] # (Auto) 0.9 H Eos # (Auto) 0.1 Baso # (Auto) 0.0 Abs Immat Gran (auto) 0.08 H Absolute Neuts (auto) 11.6 H Absolute Nucleated RBC 0.0 Nucleated RBC % 0.0 RPR Non-reactive Blood Type O Positive Antibody Screen Positive 01/13/22 04:49 WBC RBC Hgb 9.9 L Hct 30.0 L MCV MCH MCHC RDW Plt Count MPV Immature Gran % (Auto) Neut % (Auto) Lymph % (Auto) [place] % (Auto) Eos % (Auto) Baso % (Auto) Lymph # (Auto) [place] # (Auto) Eos # (Auto) Baso # (Auto) Abs Immat Gran (auto) Absolute Neuts (auto) Absolute Nucleated RBC Nucleated RBC % RPR Blood Type Antibody Screen OB - PN A/P Plan day: 1 Plan: routine care Comments: Patient doing well. Time Spent With Patient Time: Total time spent is greater than 50% in coordination of care (as documented) at patient's floor/unit and/or counseling patient: Exam Psych: Affect: normal affect Other: Abd: fundus firm below umbilicus, nontender Perineum: healing Ext: nontender
[2022-01-13 12:30] VITALS: BP 118/62; PULSE 92; RESP 18; TEMP 37.1; O2SAT 97
[2022-01-13 20:00] VITALS: BP 128/71; PULSE 94; RESP 18; TEMP 36.9; O2SAT 98
--- NOTE | 2022-01-14 07:45 | WPDANLDPN2 ---
Anes-Prog Note L&D Date/Time: 01/14/22 07:45 Comfortable throughout: delivery Neuraxial method: epidural Epidural/Spinal procedure site: clean & non-tender Neuro status: Neuro function grossly intact. Cardiovascular status: normal Respiratory status: normal Airway patency: baseline Mental status: baseline Post-Op hydration status: normal Vital Signs: Last Vital Signs Temp 36.9 C 01/13/22 20:00 Pulse 94 01/13/22 20:00 Resp 18 01/13/22 20:00 BP 128/71 01/13/22 20:00 Pulse Ox 98 01/13/22 20:00 O2 Del Method Room Air 01/13/22 01:10 Pain score (VAS): <3 I/O: Intake & Output 01/13/22 01/13/22 01/14/22 15:59 23:59 07:59 Intake Total 480 240 Balance 480 240 Post-procedural complaints: none Patient feedback: Patient satisfied with anesthetic care.
[2022-01-14 08:14] VITALS: BP 113/71; PULSE 80; RESP 18; TEMP 36.7; O2SAT 100
[2022-01-14] MEDS: ACETAMINOPHEN 325 MG TABLET 650 MG PO (08:35)
[2022-01-14] MEDS: DOCUSATE SODIUM 100 MG CAPSULE PO (08:36)
[2022-01-14] MEDS: SIMETHICONE 80 MG TAB.CHEW PO (08:36)
[2022-01-14] MEDS: POLYSACCHARIDE IRON COMPLEX 150 MG CAPSULE PO (08:36)
[2022-01-14] MEDS: MULTIVIT/MIN/PREN/FOL AC/IRON TABLET 1 TAB PO (08:36)
[2022-01-14] MEDS: IBUPROFEN 600 MG TABLET PO (08:36)
[2022-01-14] MEDS: LANOLIN (LANSINOH) 7.5 GM CREAM 1 APPLIC TOPICAL (08:37)
--- NOTE | 2022-01-14 10:17 | PM.OBPNVD ---
OB - PN: Subj Subjective Date/time seen: 01/14/22 10:17 Patient comments: pain well controlled, tolerating diet and other (Decreasing lochia.) baby status: doing well and nursing well OB - PN: Obj Data Labs CBC & Chem 7: 01/13/22 04:49 Labs: Laboratory Results - last 24 hr 01/12/22 20:04 Antibody Identification Inconclusive Antigen Identification Cancelled FRIDA, IgG Interpret Not Performed FRIDA, Poly Interpret Neg FRIDA, Complement Interp Not Performed OB - PN A/P Plan day: 2 Plan: discharge home and other Comments: Patient doing well. Follow up 4-6 weeks. Discharge instructions provided. Time Spent With Patient Time: Total time spent is greater than 50% in coordination of care (as documented) at patient's floor/unit and/or counseling patient: Time with patient: less than 15 minutes Exam Psych: Affect: normal affect Other: Abd: fundus firm below umbilicus, nontender Perineum: healing Ext: nontender
--- NOTE | 2022-01-14 10:18 | P.DS_ITS ---
DS: Admitting Diagnosis Discharge Date 01/13/2022 Admitting Diagnosis Active labor DS: Discharge Diagnosis Discharge Diagnosis (1) Delivery normal: Code(s): O80 - Encounter for full-term uncomplicated delivery Status: Acute OB - DS: Summary Hospital Course Hospital Course: Patient admitted on 01/12/2022 in active labor. She had an uncomplicated vaginal delivery. She did well . She had adequate pain control, baby was doing well, she was ambulating well. Discharged to home on day 2. OB Procedures : Ultrasound OB Procedures Intrapartum: Spontaneous Vag Delivery OB Procedures: : None Peripartum Data Delivery Method: Natural Vaginal Laceration Description: Perineal - 1st Degree complications: none Status at Discharge Functional status at discharge: independent ambulation Time Spent with Patient Time attestation: Total time spent providing and/or coordinating discharge services: Exam Const: General: cooperative Orientation/consciousness: oriented to person, oriented to place and oriented to time HENMT: Face/Nose/Sinus: Normal external nose present Eyes: General: appearance normal, both eyes and all related structures Resp: Effort & Inspection: normal respiratory effort GI: Inspection: normal to inspection Skin: General skin exam: normal color Neuro: General: oriented to person, oriented to place and oriented to time Extrem: General: normal to inspection and no calf tenderness Psych: Appearance: grossly normal Mental Status: mental status grossly normal DS: Data Data Completed and Pending Labs on day of discharge: Labs from last 24 hours 01/12/22 20:04 Antibody Identification Inconclusive Antigen Identification Cancelled FRIDA, IgG Interpret Not Performed FRIDA, Poly Interpret Neg FRIDA, Complement Interp Not Performed Discharge Plan Discharge Attending physician on discharge: Teo Espinoza Discharging Clinician: Teo Espinoza Anticipated Discharge Date/Time: 01/14/22 10:20 Patient Disposition: Home, Self-Care Activity: may shower and pelvic rest Diet: regular Discharge Instructions: Pelvic rest for 4-6 weeks. May take over the counter Ibuprofen ( Motrin) 600mg or Tylenol ( follow package instructions) for pain. Call if saturating more than a pad an hour, leg redness, pain and swelling, temperature>100.4. No strenuous activity. Patient Instructions: Antibiotic Form Stand Alone Forms: General Discharge Information Follow-up/Referrals: Teo Espinoza MD [Physician] - 4 Weeks (Make appointment for 4-6 weeks, call for appointment.) Discharge Medications: Continued prenat.vits,micah,[id number] Tablet 1 tablet PO DAILY ferrous sulfate 325 mg (65 mg iron) tablet 325 mg PO DAILY Qty: 90 1RF Discontinued aspirin 81 mg tablet,delayed release (DR/EC) 81 mg PO DAILY cholecalciferol (vitamin D3) [Vitamin D3] 50 mcg (2,000 unit) Tablet 50 mcg PO DAILY Date of admission: 01/12/22 19:17 Primary Care Provider: PHYSICIAN,TRANSPORTATION MAINTENANCE SUPERVISOR Admitting Provider: Teo Espinoza Attending physician on admission: Teo Espinoza Condition: Stable
== END 2022-01-14 13:03 | disposition home or self-care (01) | DRG 560 ==
LOC: ANHLDR 20:15 → ANHOB2 01-13 00:45
PROVIDERS: Admitting Provider Obstetrics & Gynecology; Visit Provider Obstetrics & Gynecology
DX: O99.892 Other specified diseases and conditions complicating childbirth (principal); Z37.0 Single live birth; Z3A.40 40 weeks gestation of pregnancy; Z87.59 Personal history of other complications of pregnancy, childbirth and the puerperium; O77.0 Labor and delivery complicated by meconium in amniotic fluid; O36.8330 Maternal care for abnormalities of the fetal heart rate or rhythm, third trimester, not applicable or unspecified; O70.0 First degree perineal laceration during delivery
CPT/HCPCS: 36415; 85014; 85018; 85025; 86592; 86850; 86870; 86880; 86900; 86901; 86902; 86971; A9270; J2590; J7120

== ENCOUNTER 2023-07-31 12:13 | Emergency (ER) | payer OTHER, SELFPAY ==
--- NOTE | ~2023-07-31 | XR_ITS ---
Clinical Indication: Chest pain PA and lateral views of the chest: Comparison: None Findings: The lungs are clear, without evidence of focal consolidation or pleural effusion. Cardiome diastinal silhouette is within normal limits. Bones and soft tissues are unremarkable. Impression: Normal chest. Reviewed, dictated and finalized at location . Impression: Normal chest.
[2023-07-31 12:16] VITALS: BP 126/74; PULSE 79; RESP 18; TEMP 36.8; O2SAT 100
--- NOTE | 2023-07-31 12:16 | ECG_ITS ---
Test Date: 2023-07-31 12:20:35 Measurements Intervals [place] Rate: 74 P: 43 CT: 156 QRS: 40 QRSD: 84 T: 25 QT: 351 QTc: 391 Interpretive Statements SINUS RHYTHM No previous ECG available for comparison Electronically Signed On 07-31-2023 12:21:25 CDT by Rehan James M.D.
[2023-07-31 12:34] LABS: Basophils Percent Auto 0.3 % (0.2-1.2); Eosinophils Absolute Auto 0.2 K/mm3 (0-0.3); Eosinophils Percent Auto 2.3 % (0-4.4); Hematocrit 38.9 % (37.0-47.0); Hemoglobin 12.4 g/dL (12.0-15.0); Immature Granulocyte Absolute 0.02 K/mm3 (0.00-0.031); Immature Granulocyte Percent A 0.2 % (0-0.5); Lymphocytes Absolute Auto 2.18 K/mm3 (0.9-3.2); Lymphocytes Percent Auto 23.2 % (18.3-44.2); Mean Corpuscular HGB Conc 31.9 g/dl (32-36); Mean Corpuscular Hemoglobin 26.7 pg (26-34); Mean Corpuscular Volume 83.8 fl (80-100); Mean Platelet Volume 12.3 fl (7.4-10.4); Monocytes Absolute Auto 0.5 K/mm3 (0.1-0.6); Monocytes Percent Auto 5.3 % (2.6-8.5); Neutrophils Absolute Auto 6.5 K/mm3 (1.3-6.7); Neutrophils Percent Auto 68.7 % (45.5-73.1); Platelet Count Result 243 k/mm3 (150-375); Red Blood Count 4.64 M/mm3 (4.2-5.4); Red Cell Distribution Width 13.2 % (11.5-14.5); White Blood Count 9.4 K/mm3 (4.5-10.0)
[2023-07-31 12:42] LABS: Alanine Aminotransferase 14 U/L (6-35); Albumin Level 4.4 g/dL (3.5-5.1); Alkaline Phosphatase 109 U/L (38-126); Anion Gap 6 mmol/L (4-12); Aspartate Amino Transferase 21 U/L (14-36); Bilirubin,Total 0.6 mg/dL (0.2-1.3); Blood Urea Nitrogen 16 mg/dL (7-17); Calcium 8.7 mg/dL (8.4-10.2); Carbon Dioxide 26 mmol/L (22-30); Chloride 107 mmol/L (98-107); Estimated CRCL calculation 128 ml/min; Estimated Glomerular Filt Rate > 60; Glucose 89 mg/dL (65-110); Lipase 49 U/L (23-300); Potassium 3.8 mmol/L (3.4-5.0); Sodium 139 mmol/L (137-145)
[2023-07-31 12:52] LABS: Partial Thromboplastin Time 34.5 Seconds (22.3-36.8); Prothrombin Time 13.6 Seconds (11.1-14.7)
[2023-07-31 12:54] LABS: Troponin I < 0.012 ng/mL (0.000-0.034)
[2023-07-31 13:00] VITALS: O2SAT 100
[2023-07-31 13:04] VITALS: BP 123/88; PULSE 93; RESP 11; O2SAT 100
--- NOTE | 2023-07-31 13:58 | ED.CHESTPAIN ---
HPI - Chest Pain General Chief Complaint: Chest Pain Stated Complaint: chest pain Time Seen by Provider: 07/31/23 13:39 Source: patient Mode of arrival: ambulatory Limitations: no limitations History of Present Illness HPI narrative: This is a 23 year old female that presents to the ER for substernal chest pain ongoing since last night. Reports worsening after eating some spicy food yesterday. Denies any associated symptoms. She has not taken anything for pain. Unable to qualify pain. Denies fever, abdominal pain, vomiting, or shortness of breath. Related Data Home Medications Medication Instructions Recorded Confirmed prenat.vits,micah,[id number] 1 tablet PO DAILY 11/02/21 02/22/22 Allergies Allergy/AdvReac Type Severity Reaction Status Date / Time No Known Allergies Allergy Verified 02/22/22 12:08 Review of Systems Review of Systems: CONSTITUTIONAL: Denies fever CARDIOVASCULAR: Reports chest pain. Denies edema. RESPIRATORY: Denies dyspnea. GASTROINTESTINAL: Denies abdominal pain, nausea, vomiting All systems reviewed & are unremarkable except as noted in HPI and below PMFSH Past Medical History Medical History Pre-eclampsia Family History Family History Other No pertinent family history Social History Social History Smoking status: Never smoker Second hand tobacco smoke exposure: No Substance use: never Lack of Transportation: No Lack of Food: Never True Current Housing: I Do Not Have Housing Concerned About Future Housing: No Difficulty Paying Gas/Electric Bills: No Difficulty Paying for Meds: No Currently Unemployed: YES Education: High School Diploma/GED Difficulty w/ Childcare or Family Care: No Spiritual care concerns: No Exam Narrative: GENERAL: Well-appearing, well-nourished, and in no acute distress. HEAD: Normocephalic, atraumatic. EYES: EOMI. CHEST: Clear to auscultation. No respiratory distress. No wheezes rales or rhonchi HEART: Regular rate and rhythm. No murmur heard. Normal peripheral pulses. ABDOMEN: Soft, nontender, nondistended, normal active bowel sounds. EXTREMITIES: Normal range of motion. No edema. SKIN: Warm, dry, no rash. NEURO: No focal deficits. Alert and oriented x3. PSYCH: Normal mood and affect Course Course Emergency Course: patient updated on workup and agrees with plan of care Vital Signs Vital signs: Vital Signs Temperature 98.2 F 07/31/23 12:16 Pulse Rate 79 07/31/23 12:16 Respiratory Rate 18 07/31/23 12:16 Blood Pressure 126/74 07/31/23 12:16 Pulse Oximetry 100 07/31/23 12:16 Temperature 98.2 F 07/31/23 12:16 Pulse Rate 93 07/31/23 13:04 Respiratory Rate 11 L 07/31/23 13:04 Blood Pressure 123/88 07/31/23 13:04 Pulse Oximetry 100 07/31/23 13:04 Oxygen Delivery Room Air 07/31/23 13:00 MDM - Chest Pain MDM Narrative Medical decision making narrative: Patient presents to the emergency department for chest pain ongoing since last night. She is afebrile and nontoxic appearing. Her vitals are stable. CBC and metabolic panel without concerning findings. Lipase is normal. EKG without acute ST changes and baseline and 3 hour troponin are negative. D-dimer is not elevated. Chest x-ray without acute cardiopulmonary abnormality. Patient given a dose of Pepcid with improvement. Will be continued on this and instructed to follow-up with her primary provider. She was given warnings to return to the ER Differential Diagnosis Differential diagnosis: Likely stable angina, atypical chest pain, costochondritis, biliary colic and other ( GERD, gastritis) Lab Data Attestation: I reviewed the patient's lab results. 07/31/23 12:25 07/31/23 12:25 Labs: Lab Results 07/31/23 07/31/23
[2023-07-31] MEDS: ONDANSETRON INJ 4 MG/2 ML VIAL IV PUSH (14:02)
[2023-07-31] MEDS: FAMOTIDINE 20 MG/2 ML VIAL IV PUSH (14:02)
[2023-07-31 14:42] LABS: D Dimer < 0.27 ug/mL (<0.48)
--- NOTE | 2023-07-31 15:40 | ECG_ITS ---
Test Date: 2023-07-31 15:57:04 Measurements Intervals [place] Rate: 68 P: 46 FL: 164 QRS: 47 QRSD: 83 T: 36 QT: 356 QTc: 380 Interpretive Statements SINUS RHYTHM Compared to ECG 07/31/2023 12:20:35 No significant changes Electronically Signed On 07-31-2023 16:05:25 CDT by Rehan James M.D.
[2023-07-31 16:22] LABS: Troponin I < 0.012 ng/mL (0.000-0.034)
[2023-07-31 16:46] VITALS: BP 118/66; PULSE 74; RESP 18; TEMP 36.7; O2SAT 100
== END 2023-07-31 16:47 | disposition home or self-care (01) ==
PROVIDERS: Emergency Medicine; Emergency Provider Physician Assistant
DX: R07.9 Chest pain, unspecified (principal)
CPT/HCPCS: 36415; 71046; 80053; 83690; 84484; 85025; 85380; 85610; 85730; 93005; 96374; 96375; 99284; J2405